=== PATIENT | female | born 1995 | race Two or more races ===

== ENCOUNTER 2025-07-10 20:00 | Emergency (ER) | payer OTHER ==
[~2025-07-10] VITALS: Ht 160 cm; Wt 55.3 kg
[2025-07-10] MEDS ORDERED: ACETAMINOPHEN WITH CODEINE 1 UDTAB TABLET PO ONE (21:00)
[2025-07-10] MEDS ORDERED: METHYLPREDNISOLONE SOD SUCC 125 MG VIAL ONE (23:24)
[2025-07-10] MEDS ORDERED: DIPHENHYDRAMINE HCL 50 MG/ML VIAL 1ML ONE (23:24)
[2025-07-10] MEDS ORDERED: METHYLPREDNISOLONE SOD SUCC 125 MG VIAL IV ONE (23:30)
[2025-07-10] MEDS ORDERED: DIPHENHYDRAMINE HCL 50 MG/ML VIAL 1ML IV ONE (23:30)
== END 2025-07-11 03:05 | disposition home or self-care (01) ==
LOC: ER 20:00
DX: S39.82XA Other specified injuries of lower back, initial encounter (principal); W19.XXXA Unspecified fall, initial encounter; Y93.89 Activity, other specified; Y92.89 Other specified places as the place of occurrence of the external cause; Y99.8 Other external cause status; J45.909 Unspecified asthma, uncomplicated